=== PATIENT | male | born 1995 | race Two or more races ===

== ENCOUNTER 2018-12-10 14:40 | Emergency (ER) | payer SELFPAY ==
--- NOTE | 2018-12-10 14:44 | PDOC ---
Rapid Medical Evaluation Time Seen by Provider: 12/10/18 14:42 Medical Evaluation: 12/10/18 14:42 I performed a brief in-person evaluation of this patient. Chief complaint is: "Cyst" on tailbone, has been open and draining but is not currently, hx prior surgery for same Pertinent physical exam findings include: Uncomfortable, unable to sit. Small area of induration to left buttock, very tender, no fluctuance or pus. Afebrile. I have ordered the following: None. Patient will proceed to the ED for further evaluation. Discharge Disposition - Diagnosis Abscess - Referrals - Patient Instructions - Post Discharge Activity
[2018-12-10 14:45] VITALS: BP 134/90; PULSE 74; TEMP 97.9; BMI 25.2
--- NOTE | 2018-12-10 15:35 | PDOC ---
History of Present Illness - General Chief Complaint: Abscess Boil Stated Complaint: CYST Time Seen by Provider: 12/10/18 14:42 - History of Present Illness Initial Comments: 12/10/18 15:32 23-year-old male without comorbidities presents for evaluation of a painful area on his buttocks for the last 2 days. He has history of multiple pilonidal abscesses drained in the same area this is a re-exacerbation of the same problem Past History - Past Medical History Allergies/Adverse Reactions: Allergies Allergy/AdvReac Type Severity Reaction Status Date / Time mushroom Allergy Verified 12/10/18 14:44 Home Medications: Ambulatory Orders Cephalexin [Keflex] 500 mg PO QID #40 capsule 12/10/18 Ibuprofen [Motrin -] 600 mg PO TID #30 tablet 12/10/18 Sulfamethoxazole/Trimethoprim [Bactrim Ds -] 1 tab PO BID #14 tablet 12/10/18 Asthma: Yes COPD: No Other medical history: Recurrent Cyst - Immunization History Immunization Up to Date: No - Suicide/Smoking/Psychosocial Hx Smoking History: Current every day smoker Have you smoked in the past 12 months: No Information on smoking cessation initiated: No Hx Alcohol Use: No Drug/Substance Use Hx: No Review of Systems - Review of Systems Integumentary: Yes: Lumps *Physical Exam - Vital Signs Last Vital Signs Temp Pulse Resp BP Pulse Ox 97.9 F 74 18 134/90 99 12/10/18 14:42 12/10/18 14:42 12/10/18 14:42 12/10/18 14:42 12/10/18 14:42 - Physical Exam Comments: 12/10/18 15:33 There is induration and tenderness about the superior medial aspect of the left buttocks with warmth no erythema no fluctuance and mild induration. There are no gross sensorimotor deficits. Moderate Sedation - Procedure Monitoring Vital Signs: Procedure Monitoring Vital Signs Temperature 97.9 F 12/10/18 14:42 Pulse Rate 74 12/10/18 14:42 Respiratory Rate 18 12/10/18 14:42 Blood Pressure 134/90 12/10/18 14:42 O2 Sat by Pulse Oximetry (%) 99 12/10/18 14:42 Medical Decision Making - Medical Decision Making 12/10/18 15:34 This is a nonfluctuant abscess which needs to be removed by general surgeon at this time. Multiple I&D's from the same spot. *DC/Admit/Observation/Transfer Diagnosis at time of Disposition: Abscess - Discharge Dispostion Disposition: HOME Condition at time of disposition: Stable Decision to Admit order: No - Referrals Referrals: Harshad Parks MD [Staff Physician] - - Patient Instructions Additional Instructions: Return to the emergency room should symptoms worsen or go unresolved. Please follow-up with general surgery in 1-2 days for further evaluation and treatment options. Use the antibiotics as directed and finish the entire course the Motrin is one tablet 3 times a day with food discontinue the medication if it bothers her stomach. - Post Discharge Activity
[2018-12-10] MEDS ORDERED: LIDOCAINE 1%/EPI 1:100000 (20 ML MULTI DOSE VIAL) INF ONE (17:22)
[2018-12-10] MEDS ORDERED: DOXYCYCLINE HYCLATE 100 MG CAPSULE PO ONE (19:55)
--- NOTE | 2018-12-10 20:07 | CONSULT ---
Consult Consult Specialty:: General Surgery Referred by:: Tamera Casiano Reason for Consultation:: recurrent pilonidal abscess - History of Present Illness Chief Complaint: pilonidal pain, swelling, firmness History of Present Illness: 23yo M smoker with h/o asthma, heart murmur since childhood, recurrent pilonidal abscesses in last year, presents with 48hrs of significant pain in cleft region, mostly just left of midline. There has been no drainage, no f/c, and he has not had a BM in 3 or 4 days. He has not been able to sit comfortably for days, and even standing is painful. He has had these drained before at [facility] in the past, but they always seem to come back. No urinary complaints. No n/v, eating ok, just had soda and chips. - History Source History Provided By: Patient Limitations to Obtaining History: No Limitations - Past Medical History Cardio/Vascular: Yes: Murmur Pulmonary: Yes: Asthma Dermatology: Yes: Other (pilonidal abscesses) - Past Surgical History Additional Surgical History: pilonidal drainages - Alcohol/Substance Use Hx Alcohol Use: No History of Substance Use: reports: None - Smoking History Smoking history: Current every day smoker Have you smoked in the past 12 months: Yes Aproximately how many cigarettes per day: 20 - Social History Usual Living Arrangement: With Significant Other ADL: Independent Occupation: contractor at [employer] Home Medications - Allergies Allergies/Adverse Reactions: Allergies Allergy/AdvReac Type Severity Reaction Status Date / Time mushroom Allergy Verified 12/10/18 14:44 - Home Medications Home Medications: Ambulatory Orders Doxycycline Hyclate 100 mg PO BID #14 tablet 12/10/18 Ibuprofen [Motrin -] 600 mg PO TID #30 tablet 12/10/18 Home Medications (free text): no regular home meds Family Disease History - Family Disease History Family History: Unremarkable (noncontributory) Review of Systems - Review of Systems Constitutional: denies: Chills, Fever Eyes: denies: Blurred Vision, Recent Change in Vision HENT: denies: Difficult Swallowing, Throat Pain Neck: denies: Swollen Glands, Tenderness Cardiovascular: denies: Chest Pain, Palpitations Respiratory: denies: Cough, SOB Gastrointestinal: reports: Constipation. denies: Abdominal Pain, Diarrhea, Nausea, Vomiting Genitourinary: denies: Burning, Dysuria Musculoskeletal: reports: Back Pain (coccygeal/pilonidal area pain and tenderness, more left of midline with hpi). denies: Joint Pain, Muscle Pain Integumentary: reports: Lump (firm area with hpi). denies: Change in Color, Rash Neurological: denies: Dizziness, Headache Physical Exam Vital Signs: Vital Signs Temperature 97.9 F 12/10/18 14:42 Pulse Rate 74 12/10/18 14:42 Respiratory Rate 18 12/10/18 14:42 Blood Pressure 134/90 12/10/18 14:42 O2 Sat by Pulse Oximetry (%) 99 12/10/18 14:42 Constitutional: Yes: Well Nourished, No Distress, Calm Eyes: Yes: Conjunctiva Clear, EOM Intact HENT: Yes: Atraumatic, Normocephalic Neck: Yes: Supple, Trachea Midline Cardiovascular: Yes: Regular Rate and Rhythm, Murmur (faint) Respiratory: Yes: Regular, CTA Bilaterally Gastrointestinal: Yes: Normal Bowel Sounds, Soft. No: Distention, Tenderness ...Rectal Exam: Yes: Induration (in cleft), Other (elle cleft with several scars left of midline, very tender area without erythema or fluctuance, slightly firm under scars, pits visible below in midline, no drainage, no open area, also somewhat tender over pits) Renal/: No: CVA Tenderness - Left, CVA Tenderness - Right Musculoskeletal: No: Joint Stiffness, Joint Swelling Extremities: No: Cool, Cyanosis Edema: No Peripheral Pulses WNL: Yes Integumentary: Yes: Tattoos. No: Jaundice, Rash Neurological: Yes: Alert, Oriented Psychiatric: Yes: Alert, Oriented Problem List - Problems (1) Pilonidal cyst with abscess Assessment/Plan: pt with recurrent pilonidal abscesses, concerned about receiving adequate drainage discussed that definitive excision would need to be done when not infected painful and tender over small area surrounded by old scars, pits visible in midline Discussed with patient risks, benefits and alternatives of incision and drainage of pilonidal abscess (complicated), including but not limited to bleeding, infection; alternatives include antibiotics, delayed or no surgery - risks of this include progression of infection, need for more extensive procedure, sepsis. Patient agreeable to procedure under local anesthetic in ED. See separate note. antibiotics x 1wk - ER to give first dose doxycycline pain meds alternating tylenol and ibuprofen family will help him with packing and daily wound care return to ER Saturday morning for first dressing change - they can call me when he gets here f/u [facility] next Saturday - call for appt instructions in d/c plan discussed with Tamera Casiano in fast track Code(s): L05.01 - PILONIDAL CYST WITH ABSCESS (2) Coccygeal pain Code(s): M53.3 - SACROCOCCYGEAL DISORDERS, NOT ELSEWHERE CLASSIFIED (3) Asthma Assessment/Plan: no inhaler use for years per pt Code(s): J45.909 - UNSPECIFIED ASTHMA, UNCOMPLICATED Qualifiers: Asthma severity: mild Asthma persistence: intermittent Asthma complication type: uncomplicated Qualified Code(s): J45.20 - Mild intermittent asthma, uncomplicated (4) Tobacco dependence due to cigarettes Assessment/Plan: counseled regarding cessation and impact on wound healing Code(s): F17.210 - NICOTINE DEPENDENCE, CIGARETTES, UNCOMPLICATED
--- NOTE | 2018-12-10 20:16 | PROC ---
Incision and Drainage Indication/Location: pilonidal abscess Risks and Benefits Explained: Yes Consent on Chart: No (verbal consent obtained) Betadine cleansed: Yes Anesthesia: 1% Lidocaine w/ Epi (20ml) Blade Size: 15 Drainage: purulent and bloody Irrigated with Normal Saline: No (cleansed with gauze, manually probed) Plain packing: Yes (1/2") Sterile Dressing Applied: Yes - Remarks Remarks: hair trimmed from entire area prior to prep; old scar left of midline excised, additional scar tissue excised from the wound cavity, pus encountered and cultured on entry, cavity extends to midline but appears generally clean; at least 3 pits noted lower in midline; packed with plain ribbon, covered with folded gauze and tape
== END 2018-12-10 20:20 | disposition home or self-care (01) ==
LOC: JERFT 14:40
PROC: 0H98XZZ Drainage of Buttock Skin, External Approach (ICD-10-PCS; principal; 2018-12-10)
DX: L02.31 Cutaneous abscess of buttock (principal); J45.909 Unspecified asthma, uncomplicated; F17.210 Nicotine dependence, cigarettes, uncomplicated
CPT/HCPCS: 87070; 87205; 99281-25

== ENCOUNTER 2018-12-12 10:12 | Emergency (ER) | payer SELFPAY ==
[2018-12-12 10:29] VITALS: BP 137/66; PULSE 84; TEMP 97.7; BMI 22.7
--- NOTE | 2018-12-12 11:21 | PDOC ---
History of Present Illness - General Chief Complaint: Wound Stated Complaint: WOUND CARE Time Seen by Provider: 12/12/18 11:12 History Source: Patient Exam Limitations: No Limitations - History of Present Illness Initial Comments: 12/12/18 11:17 23 yo M here for wound check, he had a pilonidal cyst drained by Dr. Morfin 2 days ago and is on doxycycline. NO medical complaints today, no fever/chills, no change in appetite. Dr. Myers currently at bedside with patient and she already saw patient before me, dressed the wound. She asked to give patient 1 percocet for pain 12/12/18 11:27 Past History - Past Medical History Allergies/Adverse Reactions: Allergies Allergy/AdvReac Type Severity Reaction Status Date / Time mushroom Allergy Verified 12/10/18 14:44 Home Medications: Ambulatory Orders Doxycycline Hyclate 100 mg PO BID #14 tablet 12/10/18 Ibuprofen [Motrin -] 600 mg PO TID #30 tablet 12/10/18 Asthma: Yes COPD: No - Immunization History Immunization Up to Date: No - Suicide/Smoking/Psychosocial Hx Smoking History: Never smoked Have you smoked in the past 12 months: Yes Number of Cigarettes Smoked Daily: 20 Hx Alcohol Use: No Drug/Substance Use Hx: No Review of Systems - Review of Systems Able to Perform ROS?: Yes Constitutional: No: Chills, Fever, Malaise, Night Sweats HEENTM: No: Eye Pain, Recent change in vision, Throat Pain Respiratory: No: Cough, Shortness of Breath Cardiac (ROS): No: Chest Pain, Palpitations, Chest Tightness ABD/GI: No: Diarrhea, Nausea, Vomiting, Abdominal cramping : No: Dysuria, Hematuria Musculoskeletal: No: Back Pain Integumentary: No: Rash Neurological: No: Headache, Numbness, Dizziness Psychiatric: No: Change in Appetite Endocrine: No: Unexplained Weight Loss *Physical Exam - Vital Signs Last Vital Signs Temp Pulse Resp BP Pulse Ox 97.7 F 84 18 137/66 99 12/12/18 10:25 12/12/18 10:25 12/12/18 10:25 12/12/18 10:25 12/12/18 10:25 - Physical Exam General Appearance: Yes: Nourished. No: Apparent Distress HEENT: positive: Normal ENT Inspection, Normal Voice. negative: Pale Conjunctivae, Scleral Icterus (R), Scleral Icterus (L) Neck: positive: Supple. negative: Decreased range of motion Respiratory/Chest: negative: Respiratory Distress Cardiovascular: positive: Regular Rate Musculoskeletal: positive: Normal Inspection. negative: CVA Tenderness, Decreased Range of Motion Extremity: positive: Normal Capillary Refill, Normal Inspection, Normal Range of Motion, Other (Pilonidal wound dressed by Dr. Morfin, see consult note). negative: Tender, Pedal Edema Integumentary: positive: Normal Color, Dry. negative: Jaundice, Rash Neurologic: positive: Fully Oriented, Alert, Normal Mood/Affect Moderate Sedation - Procedure Monitoring Vital Signs: Procedure Monitoring Vital Signs Temperature 97.7 F 12/12/18 10:25 Pulse Rate 84 12/12/18 10:25 Respiratory Rate 18 12/12/18 10:25 Blood Pressure 137/66 12/12/18 10:25 O2 Sat by Pulse Oximetry (%) 99 12/12/18 10:25 Medical Decision Making - Medical Decision Making 12/12/18 11:29 23 yo M here for wound check, consult already done by Dr. Morfin who asked to give pt pain meds. Final Wound culture not resulted yet. Pt will continue taking doxycycline as prescribed. FOllow up saturday at the clinic Return for worsening/concerning symptoms Pt verbalized understanding 12/12/18 11:32 *DC/Admit/Observation/Transfer Diagnosis at time of Disposition: Wound check, abscess, Pilonidal cyst with abscess - Discharge Dispostion Disposition: HOME Condition at time of disposition: Stable Decision to Admit order: No - Referrals Referrals: Ezra Morfin MD [Staff Physician] - - Patient Instructions Printed Discharge Instructions: DI for Pilonidal Cyst Drainage and Removal Additional Instructions: Follow up on Saturday as instructed. Keep the wound clean and dry at all times. Take antibiotics as prescribed and pain medication if needed - Post Discharge Activity
--- NOTE | 2018-12-12 11:30 | CONSULT ---
Consult Consult Specialty:: General Surgery Referred by:: ER Reason for Consultation:: wound check/dsg change from I&D Wed - History of Present Illness Chief Complaint: pilonidal wound s/p I&D History of Present Illness: 23yoM smoker with asthma, recurrent pilonidal abscesses, was seen 2 nights ago for pilonidal abscess and had I&D done by me in ER with packing of wound. He is taking Doxycycline, wound culture still pending but GS with GPC clusters. Pain is better, but he still has enough not to sit much yet. Took Motrin before coming to ED for first dressing change. No n/v, no f/c. Outer dressing was changed by him because there was bleeding through. Dressing now has serosang drainage on it. - History Source History Provided By: Patient Limitations to Obtaining History: No Limitations - Past Medical History Cardio/Vascular: Yes: Murmur Pulmonary: Yes: Asthma Dermatology: Yes: Other (pilonidal abscesses) - Past Surgical History Additional Surgical History: I&D pilonidal abscesses - Alcohol/Substance Use Hx Alcohol Use: No History of Substance Use: reports: None - Smoking History Smoking history: Current every day smoker Have you smoked in the past 12 months: Yes Aproximately how many cigarettes per day: 20 - Social History Usual Living Arrangement: With Significant Other ADL: Independent 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 Medications - Allergies Allergies/Adverse Reactions: Allergies Allergy/AdvReac Type Severity Reaction Status Date / Time mushroom Allergy Verified 12/10/18 14:44 - Home Medications Home Medications: Ambulatory Orders Doxycycline Hyclate 100 mg PO BID #14 tablet 12/10/18 Ibuprofen [Motrin -] 600 mg PO TID #30 tablet 12/10/18 Family Disease History - Family Disease History Family History: Unremarkable (noncontributory) Review of Systems - Review of Systems Constitutional: denies: Chills, Fever Eyes: denies: Blurred Vision, Recent Change in Vision HENT: denies: Difficult Swallowing, Throat Pain Neck: denies: Swollen Glands, Tenderness Cardiovascular: denies: Chest Pain, Palpitations Respiratory: denies: Cough, SOB Gastrointestinal: reports: Constipation. denies: Abdominal Pain, Diarrhea, Nausea, Vomiting Genitourinary: denies: Burning, Dysuria Musculoskeletal: denies: Joint Pain, Muscle Pain Integumentary: denies: Change in Color, Rash Neurological: denies: Dizziness, Headache Physical Exam Vital Signs: Vital Signs Temperature 97.7 F 12/12/18 10:25 Pulse Rate 84 12/12/18 10:25 Respiratory Rate 18 12/12/18 10:25 Blood Pressure 137/66 12/12/18 10:25 O2 Sat by Pulse Oximetry (%) 99 12/12/18 10:25 Constitutional: Yes: Well Nourished, No Distress, Calm Eyes: Yes: Conjunctiva Clear, EOM Intact HENT: Yes: Atraumatic, Normocephalic Neck: Yes: Supple, Trachea Midline Cardiovascular: Yes: Regular Rate and Rhythm, Murmur (faint) Respiratory: Yes: Regular, CTA Bilaterally Gastrointestinal: Yes: Soft. No: Distention, Tenderness ...Rectal Exam: Yes: Deferred, Other (see below for pilonidal wound, mild induration but no erythema locally) Renal/: No: CVA Tenderness - Left, CVA Tenderness - Right Musculoskeletal: No: Joint Stiffness, Joint Swelling Extremities: No: Cool, Cyanosis Integumentary: Yes: Incision (pilonidal/left of elle cleft, dressed). No: Jaundice, Rash Wound/Incision: Yes: Dressing Dry and Intact (serosang drainage on gauze), Dressing Removed (and changed - wound clean, some bleeding, small point internally cauterized with silver nitrate, pressure held; saline-damp 4x4 packed into wound, covered with folded 4x4 and tape to hold), Unapproximated ( no purulence, red-based, clean). No: Reddened Neurological: Yes: Alert, Oriented Psychiatric: Yes: Alert, Oriented Labs: micro checked - GS as noted in HPI, cx pending Problem List - Problems (1) Pilonidal cyst with abscess Assessment/Plan: s/p I&D 2 nights ago wound clean still mildly indurated around tender/painful with dressing change given one percocet in ED will Rx #12 for next few days otherwise alternating tylenol/ibuprofen for pain complete doxy f/u Tues in wound clinic with me as directed Code(s): L05.01 - PILONIDAL CYST WITH ABSCESS (2) Coccygeal pain Code(s): M53.3 - SACROCOCCYGEAL DISORDERS, NOT ELSEWHERE CLASSIFIED (3) Asthma Code(s): J45.909 - UNSPECIFIED ASTHMA, UNCOMPLICATED Qualifiers: Asthma severity: mild Asthma persistence: intermittent Asthma complication type: uncomplicated Qualified Code(s): J45.20 - Mild intermittent asthma, uncomplicated (4) Tobacco dependence due to cigarettes Code(s): F17.210 - NICOTINE DEPENDENCE, CIGARETTES, UNCOMPLICATED
== END 2018-12-12 11:54 | disposition home or self-care (01) ==
LOC: JERFT 10:12
DX: Z48.817 Encounter for surgical aftercare following surgery on the skin and subcutaneous tissue (principal); Z48.01 Encounter for change or removal of surgical wound dressing; L05.01 Pilonidal cyst with abscess; M53.3 Sacrococcygeal disorders, not elsewhere classified; J45.909 Unspecified asthma, uncomplicated; F17.210 Nicotine dependence, cigarettes, uncomplicated
CPT/HCPCS: 99281-25

== ENCOUNTER 2020-01-17 17:36 | Emergency (ER) | payer OTHER ==
[2020-01-17 17:49] VITALS: BP 138/45; PULSE 87; TEMP 97.7; BMI 25.0
[2020-01-17] MEDS ORDERED: KETOROLAC TROMETHAMINE 30 MG/1 ML VIAL IM ONE (18:29)
[2020-01-17] MEDS ORDERED: diazePAM 5 MG TABLET PO ONE (18:29)
[2020-01-17] MEDS ORDERED: diazePAM 5 MG TABLET ONE (18:32)
[2020-01-17] MEDS ORDERED: KETOROLAC TROMETHAMINE 30 MG/1 ML VIAL ONE (18:32)
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
== END 2020-01-17 19:01 | disposition home or self-care (01) ==
LOC: JERFT 17:36
PROC: 3E0233Z Introduction of Anti-inflammatory into Muscle, Percutaneous Approach (ICD-10-PCS; principal; 2020-01-17)
DX: S19.80XA Other specified injuries of unspecified part of neck, initial encounter (principal); M54.2 Cervicalgia; W18.39XA Other fall on same level, initial encounter; Y93.02 Activity, running; Y92.038 Other place in apartment as the place of occurrence of the external cause; Y99.8 Other external cause status; Z87.09 Personal history of other diseases of the respiratory system; Z91.018 Allergy to other foods
CPT/HCPCS: 99284-25